=== PATIENT | male | born 1935 | race Caucasian/White ===

== ENCOUNTER → 2016-12-30 | Outpatient (CLI) | payer BC, MEDICARE ==
[2014-09-07 10:57] VITALS: BP 109/70
[~2016-12-30] MED LIST: AMLO5TAB2 PO; ASCO10006 PO; ASPI81TA2 PO; CALC500T PO; CALC600T4 PO; CEFT1VIA IJ; CEPH-264 PO; CHOL10003 PO; DIGO0.12 PO; DIGO0.25 PO; DOXA1TAB PO; FENO145T PO; FENT50VI6 IVP; FLAX100017 PO; FOLI1TAB16 PO; FURO20TA3 PO; FURO40SO5 IVP; LEVO750P7 IV; LORA10TA3 PO; METF500T4 PO; METO100T11 PO; METO200T3 PO; NIAC1000 PO; OMEG500C PO; POTA20TA4 PO; POTA20TA82 PO; SILO8CAP PO; VALS320T2 PO; VITA150T PO; WARF1TAB7 PO; WARF2TAB7 PO; [UNRECOGNIZED DRUG - CODE] PO
== END | disposition home or self-care (01) ==
LOC: PMGWOUND 08:49
PROVIDERS: ATTEND Emergency Medicine Undersea and Hyperbaric Medicine
DX: I87.313 Chronic venous hypertension (idiopathic) with ulcer of bilateral lower extremity (principal); L97.211 Non-pressure chronic ulcer of right calf limited to breakdown of skin; L97.221 Non-pressure chronic ulcer of left calf limited to breakdown of skin; L97.511 Non-pressure chronic ulcer of other part of right foot limited to breakdown of skin; I48.91 Unspecified atrial fibrillation; I11.0 Hypertensive heart disease with heart failure; I50.9 Heart failure, unspecified; M19.90 Unspecified osteoarthritis, unspecified site
CPT/HCPCS: 29581

== ENCOUNTER → 2017-01-02 | Outpatient (CLI) | payer BC, MEDICARE ==
[2014-09-07 10:57] VITALS: BP 109/70
== END | disposition home or self-care (01) ==
LOC: PMGWOUND 12:13
PROVIDERS: ATTEND Preventive Medicine Undersea and Hyperbaric Medicine
DX: I87.313 Chronic venous hypertension (idiopathic) with ulcer of bilateral lower extremity (principal); E11.622 Type 2 diabetes mellitus with other skin ulcer; L97.211 Non-pressure chronic ulcer of right calf limited to breakdown of skin; L97.221 Non-pressure chronic ulcer of left calf limited to breakdown of skin; I48.91 Unspecified atrial fibrillation; I11.0 Hypertensive heart disease with heart failure; I50.9 Heart failure, unspecified; M19.90 Unspecified osteoarthritis, unspecified site
CPT/HCPCS: 29581

== ENCOUNTER → 2017-01-09 | Outpatient (CLI) | payer BC, MEDICARE ==
[2014-09-07 10:57] VITALS: BP 109/70
== END | disposition home or self-care (01) ==
LOC: PMGWOUND 11:21
PROVIDERS: ATTEND Preventive Medicine Undersea and Hyperbaric Medicine
DX: I87.313 Chronic venous hypertension (idiopathic) with ulcer of bilateral lower extremity (principal); L97.211 Non-pressure chronic ulcer of right calf limited to breakdown of skin; L97.221 Non-pressure chronic ulcer of left calf limited to breakdown of skin; I48.91 Unspecified atrial fibrillation; I11.0 Hypertensive heart disease with heart failure; I50.9 Heart failure, unspecified; M19.90 Unspecified osteoarthritis, unspecified site
CPT/HCPCS: 29581

== ENCOUNTER → 2017-01-16 | Outpatient (CLI) | payer BC, MEDICARE ==
[2014-09-07 10:57] VITALS: BP 109/70
== END | disposition home or self-care (01) ==
LOC: PMGWOUND 10:46
PROVIDERS: ATTEND Preventive Medicine Undersea and Hyperbaric Medicine
DX: I87.313 Chronic venous hypertension (idiopathic) with ulcer of bilateral lower extremity (principal); L97.211 Non-pressure chronic ulcer of right calf limited to breakdown of skin; L97.221 Non-pressure chronic ulcer of left calf limited to breakdown of skin; I11.0 Hypertensive heart disease with heart failure; I50.9 Heart failure, unspecified; I48.91 Unspecified atrial fibrillation; M19.90 Unspecified osteoarthritis, unspecified site
CPT/HCPCS: 29581

== ENCOUNTER → 2017-01-23 | Outpatient (CLI) | payer BC, MEDICARE ==
[2014-09-07 10:57] VITALS: BP 109/70
[~2017-01-23] MED LIST changes: +ASCO100020 PO; -ASCO10006 PO; +ASPI-630 PO; -ASPI81TA2 PO
== END | disposition home or self-care (01) ==
LOC: PMGWOUND 10:37
PROVIDERS: ATTEND Preventive Medicine Undersea and Hyperbaric Medicine
DX: I87.311 Chronic venous hypertension (idiopathic) with ulcer of right lower extremity (principal); E11.622 Type 2 diabetes mellitus with other skin ulcer; L97.211 Non-pressure chronic ulcer of right calf limited to breakdown of skin; S41.112D Laceration without foreign body of left upper arm, subsequent encounter; I11.0 Hypertensive heart disease with heart failure; I50.9 Heart failure, unspecified; I48.91 Unspecified atrial fibrillation; M19.90 Unspecified osteoarthritis, unspecified site; X58.XXXD Exposure to other specified factors, subsequent encounter
CPT/HCPCS: 29581; 97597; 97598

== ENCOUNTER → 2017-01-30 | Outpatient (CLI) | payer BC, MEDICARE ==
[2014-09-07 10:57] VITALS: BP 109/70
== END | disposition home or self-care (01) ==
LOC: PMGWOUND 11:08
PROVIDERS: ATTEND Preventive Medicine Undersea and Hyperbaric Medicine
DX: I87.313 Chronic venous hypertension (idiopathic) with ulcer of bilateral lower extremity (principal); L97.211 Non-pressure chronic ulcer of right calf limited to breakdown of skin; L97.221 Non-pressure chronic ulcer of left calf limited to breakdown of skin; I11.0 Hypertensive heart disease with heart failure; I50.9 Heart failure, unspecified; I48.91 Unspecified atrial fibrillation; M19.90 Unspecified osteoarthritis, unspecified site
CPT/HCPCS: 29581

== ENCOUNTER → 2017-02-06 | Outpatient (CLI) | payer BC, MEDICARE ==
[2014-09-07 10:57] VITALS: BP 109/70
== END | disposition home or self-care (01) ==
LOC: PMGWOUND 08:58
PROVIDERS: ATTEND Preventive Medicine Undersea and Hyperbaric Medicine
DX: I87.311 Chronic venous hypertension (idiopathic) with ulcer of right lower extremity (principal); L97.211 Non-pressure chronic ulcer of right calf limited to breakdown of skin; I11.0 Hypertensive heart disease with heart failure; I50.9 Heart failure, unspecified; I48.91 Unspecified atrial fibrillation; M19.90 Unspecified osteoarthritis, unspecified site
CPT/HCPCS: 29581

== ENCOUNTER → 2017-02-13 | Outpatient (CLI) | payer BC, MEDICARE ==
[2014-09-07 10:57] VITALS: BP 109/70
== END | disposition home or self-care (01) ==
LOC: PMGWOUND 10:42
PROVIDERS: ATTEND Preventive Medicine Undersea and Hyperbaric Medicine
DX: I87.313 Chronic venous hypertension (idiopathic) with ulcer of bilateral lower extremity (principal); E11.622 Type 2 diabetes mellitus with other skin ulcer; L97.211 Non-pressure chronic ulcer of right calf limited to breakdown of skin; L97.221 Non-pressure chronic ulcer of left calf limited to breakdown of skin; I11.0 Hypertensive heart disease with heart failure; I50.9 Heart failure, unspecified; I48.91 Unspecified atrial fibrillation; M19.90 Unspecified osteoarthritis, unspecified site; G89.4 Chronic pain syndrome
CPT/HCPCS: 99214

== ENCOUNTER 2017-06-10 12:26 | Inpatient (IN) | payer BC, MEDICARE ==
[~2017-06-10] VITALS: Ht 172.7 cm; Wt 88.5 kg
[~2017-06-10 12:26] MED LIST changes: +METO-247 PO; -METO100T11 PO; -METO200T3 PO; +METO200T5 PO
[2017-06-10 15:00] VITALS: BP 144/81
[2017-06-10] MEDS: IPRATRPIUM/ALBUTEROL 0.5/2.5MG 3 ML NEBU. NEB SCH ×2 (15:21→20:43)
--- NOTE | 2017-06-10 15:37 | PDOC1 ---
History and Physical Date of Admission Date of Admission DATE: 06/10/17 TIME: 15:28 Identification/Chief Complaint Chief Complaint dyspnea, hypoxia Problems: Source Source: Caregiver, Chart review, Patient History of Present Illness History of Present Illness pt was admitted to [facility] 2 days ago, Dr. Rowland was treating acute CHF exacerbation, with CV consult, Pt was getting IV lasix, labs better, pt felt about the same, new hypoxia w. resp failure on this admit 2 days ago CXR showed pleural effusions that appear to be worsening, transfer req. here for CV consult, PULM and poss IR if needed no fever, no pain, no travel, just dyspneic and weakness, also new difficulty voiding urine just this afternoon Past Medical History Cardiovascular: AFIB, CHF, HTN Pulmonary: No pertinent hx GI: No pertinent hx Heme/Onc: No pertinent hx Rheumatologic: No pertinent hx Infectious disease: No pertinent hx Family History Family History: Hypertension Social History Smoke: No ALCOHOL: none Current Medications Current Medications Current Medications Albuterol/ Ipratropium (Duoneb) 3 ml RTQID NEB Last administered on 06/10/17t 15:21; Start 06/10/17 at 16:00 Active Scripts Active Reported Diovan (Valsartan) 320 Mg Tablet 1 Tab PO DAILY Potassium Chloride 20 Meq Tablet.er 20 Meq PO DAILY Niacin Er (Niacin) 1,000 Mg Tab.er.24h 1,000 Mg PO HS Metoprolol Succinate ( Xl ) (Metoprolol Succinate) 100 Mg Tab.er.24h 1 Tab PO DAILY Loratadine 10 Mg Tablet 1 Tab PO DAILY Folic Acid 1 Mg Tablet 1 Tab PO DAILY Cardura (Doxazosin Mesylate) 1 Mg Tablet 1 Mg PO QHS Calcium Carbonate 500 Mg Tablet 500 Mg PO DAILY08 Aspirin 81 Mg Tab.chew 81 Mg PO DAILY Vitamin D3 (Cholecalciferol (Vitamin D3)) 1,000 Unit Tablet 1,000 Unit PO DAILY Super B Complex (Vitamin B Complex & Vit C No.4) 150 Mg Tablet 150 Mg PO DAILY Vitamin C (Ascorbic Acid) 1,000 Mg Tablet.er 1,000 Mg PO DAILY Calcium (Calcium Carbonate) 600 Mg Tablet 600 Mg PO DAILY Flax Seed Oil (Flaxseed Oil) 1,000 Mg Capsule 1,000 Mg PO DAILY Fish Oil ([place]-3 Fatty Acids) 500 Mg Capsule.dr 1,000 Mg PO BID Warfarin Sodium 2 Mg Tablet 2 Mg PO .EVERY OTHER DAY Thursday, , Thursday Warfarin Sodium 1 Mg Tablet 1.5 Mg PO .EVERY OTHER DAY Thursday, Thursday, Thursday, Thursday Niaspan (Niacin) 1,000 Mg Tab.er.24h 1,000 Mg PO DAILY Rapaflo (Silodosin) 8 Mg Capsule 8 Mg PO DAILY Furosemide 20 Mg Tablet 20 Mg PO BID Digoxin 0.25 Mg/5 Ml Solution 0.25 Mg PO .2X A WEEK Digoxin 0.125 Mg/2.5 Ml Solution 0.375 Mg PO 3X/WEEK Tricor (Fenofibrate Nanocrystallized) 145 Mg Tablet 145 Mg PO DAILY Allergies Allergies: Coded Allergies: No Known Drug Allergies (Unverified , 11/03/13) ROS General: YES: Fatigue, Malaise, No: Chills, Night Sweats, Appetite, Other PSYCHOLOGICAL ROS: YES: Sleep disturbances, Other, No: Anxiety, Behavioral Disorder, Concentration difficultie, Decreased libido , Depression, Disorientation, Hallucinations, Hostility, Irritablity, Memory difficulties, Mood Swings, Obsessive thoughts Eyes: No Blurry vision, No Decreased vision, No Double vision, No Dry eyes, No Excessive tearing, No Eye Pain, No Itchy Eyes, No Loss of vision, No Photophobia , No [place]omata, No Uses contacts, No Uses glasses, No Other HEENT: No: Heacaches, Visual Changes, Hearing change, Nasal congestion, Nasal discharge, Oral lesions, Sinus pain, Sore Throat, Epistaxis, Sneezing, Snoring, Tinnitus, Vertigo, Vocal changes, Other ALLERGY AND IMMUNOLOGY: No: Hives, Insect Bite Sensitivity, Itchy/Watery Eyes, Nasal Congestion, Post Nasal Drip, Seasonal Allergies, Other Hematological and Lymphatic: No: Bleeding Problems, Blood Clots, Blood Transfusions, Brusing, Night Sweats, Pallor, Swollen Lymph Nodes, Other Respiratory: YES: Orthopnea, Shortness of breath, SOB with excertion, No: Cough, Hemoptysis, Pleuritic Pain, Sputum Changes, Stridor, Tachypnea, Wheezing, Other Cardiovascular: yes Edema, No Chest Pain, No Palpitations, No Orthopnea, No Paroxysmal Noc. Dyspnea, No Lt Headedness, No Other Gastrointestinal: No Nausea, No Vomiting, No Abdominal Pain, No Diarrhea, No Constipation, No Melena, No Hematochezia, No Other Genitourinary: No Dysuria, No Frequency, No Incontinence, No Hematuria, No Retention, No Discharge, No Urgency, No Pain, No Flank Pain, No Other, No , No , No , No , No , No , No Musculoskeletal: No Gait Disturbance, No Joint Pain, No Joint Stiffness, No Joint Swelling, No Muscle Pain, No Muscular Weakness, No Pain In:, No Swelling In:, No Other Neurological: No Behavorial Changes, No Bowel/Bladder ControlChng, No Confusion , No Dizziness, No Gait Disturbance, No Headaches, No Impaired Coord/balance, No Memory Loss, No Numbness/Tingling, No Seizures, No Speech Problems, No Tremors, No Visual Changes, No Weakness, No Other Skin: Yes Dry Skin, No Eczema, No Hair Changes, No Lumps, No Mole Changes, No Mottling, No Nail Changes, No Pruritus, No Rash, No Skin Lesion Changes, No Other, No Acne Physical Exam General: Alert, Cooperative, No acute distress HEENT: Atraumatic, EOMI, Mucous membr. moist/pink Lungs: Other (dull bases, limited vol, no wheeze, no rales, ) Abdomen: Normal bowel sounds, Soft Rectal Exam: not examined Extremities: No clubbing, Other (2+ LE edema, RLE wounds) Skin: No rashes Neuro: Normal speech, Sensation intact, Other (weakness to stand) Psych/Mental Status: Mood NL Vitals Vitals Vital Signs Date Time Temp Pulse Resp B/P (MAP) Pulse Ox O2 Delivery O2 Flow Rate FiO2 06/10/17 15:23 89 Room Air VTE Prophylaxis Ordered VTE Prophylaxis Devices: Yes VTE Pharmacological Prophylaxi: Yes Assessment/Plan Assessment/Plan 1. Acute hypoxic respiratory failure, CHF exac 2. Acute on chronic diastolic heart failure - recent good diuresis but larger pleural effusions s 3. Afib rate controlled 4. Dyslipidemia - and Hypertension - 5. moderate pulmonary hypertension - 6. moderate protein malnutrition - 7. urinary retention, start flomax JING GREENE MD Jun 10, 2017 15:37
[2017-06-10] MEDS ORDERED: WARFARIN 1 MG TABLET. PO ONE (16:00)
[2017-06-10] MEDS: FUROSEMIDE 40 MG/4 ML VIAL. IVP SCH (17:03)
--- NOTE | 2017-06-10 18:26 | RAD ---
Exam: AP portable chest History: Congestive heart failure. Comparison: None. Findings: Cardiac silhouette is enlarged. No pneumothorax is identified. There is evidence of small bilateral pleural effusions. Bibasilar densities could be atelectasis versus developing infiltrates. Pulmonary vascularity appears accentuated. Impression: 1. Accentuated pulmonary vascularity, suggesting mild congestive heart failure. 2. Small bilateral pleural effusions and associated densities. Electronically signed by: Aung Flores MD (06/10/2017 6:23 PM) [facility]
[2017-06-10 19:15] VITALS: BP 106/55
[2017-06-10 23:25] VITALS: BP 107/65
[2017-06-11 03:25] VITALS: BP 135/73
[2017-06-11 04:51] LABS: BASO % 1 % (0-3); EOS % 1 % (0-3); HEMATOCRIT 36.2 % (39.0-53.0); HEMOGLOBIN 12.3 g/dL (13.0-17.5); LYMPH # 1.2 x10^3/uL (1.0-4.8); LYMPH % 17 % (24-48); MEAN CORPUSCULAR HEMOGLOBIN 33 pg (25-35); MEAN CORPUSCULAR HGB CONC 34 g/dL (31-37); MEAN CORPUSCULAR VOLUME 96 fL (79-100); MONO % 14 % (0-9); NEUT % 67 % (31-73); PLATELET COUNT 150 x10^3/uL (140-400); RED BLOOD COUNT 3.77 x10^6/uL (4.30-5.70); RED CELL DISTRIBUTION WIDTH 14.8 % (11.5-14.5); WHITE BLOOD COUNT 6.8 x10^3/uL (4.0-11.0)
[2017-06-11 05:04] LABS: INR 2.3 (0.8-1.1); PROTHROMBIN TIME PATIENT 23.5 SEC (11.7-14.0)
[2017-06-11 05:27] LABS: ALBUMIN 2.6 g/dL (3.4-5.0); ALBUMIN/GLOBULIN RATIO 0.8 (1.0-1.7); CREATININE 1.1 mg/dL (0.7-1.3); GFR 64.2; POTASSIUM 3.9 mmol/L (3.5-5.1)
[2017-06-11 07:00] VITALS: BP 156/84
[2017-06-11] MEDS: IPRATRPIUM/ALBUTEROL 0.5/2.5MG 3 ML NEBU. NEB SCH ×4 (07:21→20:59)
[2017-06-11] MEDS: FUROSEMIDE 40 MG/4 ML VIAL. IVP SCH ×2 (08:29→16:27)
[2017-06-11] MEDS: METOPROLOL SUCC 24HR ER 100 MG TAB.ER.24H. PO SCH (08:30)
[2017-06-11] MEDS: DIGOXIN 250 MCG TABLET. PO SCH (09:00)
--- NOTE | 2017-06-11 10:57 | PDOC ---
CARDIO Progress Notes Date and Time Date of Service 06/11/17 Time of Evaluation 1015 Subjective Subjective: No Chest Pain, No Palpitations, Other (breathing improved. Having COLEMAN) Vitals Vitals Vital Signs Date Time Temp Pulse Resp B/P (MAP) Pulse Ox O2 Delivery O2 Flow Rate FiO2 06/11/17 09:00 82 156/84 06/11/17 08:00 Nasal Cannula 2.0 06/11/17 07:21 94 06/11/17 07:00 98.0 20 98.0 Weight Weight [ ] Laboratory Labs Laboratory Tests Test 06/11/17 03:15 White Blood Count 6.8 x10^3/uL (4.0-11.0) Red Blood Count 3.77 x10^6/uL (4.30-5.70) Hemoglobin 12.3 g/dL (13.0-17.5) Hematocrit 36.2 % (39.0-53.0) Mean Corpuscular Volume 96 fL (79-100) Mean Corpuscular Hemoglobin 33 pg (25-35) Mean Corpuscular Hemoglobin Concent 34 g/dL (31-37) Red Cell Distribution Width 14.8 % (11.5-14.5) Platelet Count 150 x10^3/uL (140-400) Neutrophils (%) (Auto) 67 % (31-73) Lymphocytes (%) (Auto) 17 % (24-48) Monocytes (%) (Auto) 14 % (0-9) Eosinophils (%) (Auto) 1 % (0-3) Basophils (%) (Auto) 1 % (0-3) Neutrophils # (Auto) 4.6 x10^3uL (1.8-7.7) Lymphocytes # (Auto) 1.2 x10^3/uL (1.0-4.8) Monocytes # (Auto) 0.9 x10^3/uL (0.0-1.1) Eosinophils # (Auto) 0.1 x10^3/uL (0.0-0.7) Basophils # (Auto) 0.0 x10^3/uL (0.0-0.2) Prothrombin Time 23.5 SEC (11.7-14.0) Prothromb Time International Ratio 2.3 (0.8-1.1) Sodium Level 142 mmol/L (136-145) Potassium Level 3.9 mmol/L (3.5-5.1) Chloride Level 101 mmol/L (98-107) Carbon Dioxide Level 41 mmol/L (21-32) Anion Gap 0 (6-14) Blood Urea Nitrogen 29 mg/dL (8-26) Creatinine 1.1 mg/dL (0.7-1.3) Estimated GFR (Cockcroft-Gault) 64.2 BUN/Creatinine Ratio 26 (6-20) Glucose Level 79 mg/dL (70-99) Calcium Level 9.0 mg/dL (8.5-10.1) Total Bilirubin 1.0 mg/dL (0.2-1.0) Aspartate Amino Transf (AST/SGOT) 38 U/L (15-37) Alanine Aminotransferase (ALT/SGPT) 28 U/L (16-63) Alkaline Phosphatase 132 U/L (46-116) ZB-Ufp-N-Type Natriuretic Peptide 6579 pg/mL (0-449) Total Protein 6.0 g/dL (6.4-8.2) Albumin 2.6 g/dL (3.4-5.0) Albumin/Globulin Ratio 0.8 (1.0-1.7) Digoxin Level < 0.2 ng/mL (0.9-2.0) Digoxin Last Dose Date 06/10/17 Digoxin Last Dose Time 0800 Physical Exam HEENT: Neck Supple W Full Motion Chest: Symmetric LUNGS: Other (fine bibasilar crackles) Heart: S1S2, RRR, murmurs (2/6 systolic murmur ) Abdomen: Soft N/T Extremities: Other (2+ bilateral LE edema up to knee level) Neurology: alert, oriented, follow commands Assessment Assessment Continuum of care. See consult from [facility] in physical chart for further details. Assessment 1. Acute diastolic HF; LVEF 60% 2. Acute respiratory failure with bilateral pleural effusion 3. Permanent AFIB 4. Dyslipidemia 5. Hypertension Recommendations Continue IV diuresis. Add potassium. Am labs Rate control with digoxin and metoprolol Warfarin for stroke prophylaxis; hold if thoracentesis is warranted. Supportive care STEVE TRISTAN APRN Jun 11, 2017 10:57
[2017-06-11 11:00] VITALS: BP 139/71
[2017-06-11] MEDS: POTASSIUM CHLORIDE 20 MEQ TABLET.ER. PO SCH ×2 (12:30→20:35)
--- NOTE | 2017-06-11 13:29 | PDOC ---
PROGRESS NOTES Chief Complaint Chief Complaint Dyspnea ASSESSMENT AND PLAN: 1. Acute diastolic HF: LVEF 60%. IV lasix bid 2. Afib: rate controlled on dig and metoprolol 3. OAC: on coumadin 4. Pleural effusions: appreciate Dr Domingo's input. not sufficient fluid for safe pleurocentesis. 5. HTN: restarted home meds. hydralazine PRN 6. HLD: on niacin 7. Protein malnutrition: mild-mod. exacerbated by CHF related hypoalbuminemia 8. BPH: started flomax History of Present Illness History of Present Illness mild SOB, cough, nonproductive. no pain Vitals Vitals Vital Signs Date Time Temp Pulse Resp B/P (MAP) Pulse Ox O2 Delivery O2 Flow Rate FiO2 06/11/17 11:23 100 Nasal Cannula 2.0 06/11/17 11:00 97.4 69 19 139/71 (93) 97.4 Physical Exam General: Alert, Cooperative, No acute distress Heart: Other (almost regular rhythm, rate controlle) Lungs: Crackles (bibasilar) Abdomen: Normal bowel sounds, Soft Extremities: No clubbing, Other (2+ LE edema, RLE wounds) Skin: No rashes Labs LABS Laboratory Tests Test 06/11/17 03:15 White Blood Count 6.8 x10^3/uL (4.0-11.0) Red Blood Count 3.77 x10^6/uL (4.30-5.70) Hemoglobin 12.3 g/dL (13.0-17.5) Hematocrit 36.2 % (39.0-53.0) Mean Corpuscular Volume 96 fL (79-100) Mean Corpuscular Hemoglobin 33 pg (25-35) Mean Corpuscular Hemoglobin Concent 34 g/dL (31-37) Red Cell Distribution Width 14.8 % (11.5-14.5) Platelet Count 150 x10^3/uL (140-400) Neutrophils (%) (Auto) 67 % (31-73) Lymphocytes (%) (Auto) 17 % (24-48) Monocytes (%) (Auto) 14 % (0-9) Eosinophils (%) (Auto) 1 % (0-3) Basophils (%) (Auto) 1 % (0-3) Neutrophils # (Auto) 4.6 x10^3uL (1.8-7.7) Lymphocytes # (Auto) 1.2 x10^3/uL (1.0-4.8) Monocytes # (Auto) 0.9 x10^3/uL (0.0-1.1) Eosinophils # (Auto) 0.1 x10^3/uL (0.0-0.7) Basophils # (Auto) 0.0 x10^3/uL (0.0-0.2) Prothrombin Time 23.5 SEC (11.7-14.0) Prothromb Time International Ratio 2.3 (0.8-1.1) Sodium Level 142 mmol/L (136-145) Potassium Level 3.9 mmol/L (3.5-5.1) Chloride Level 101 mmol/L (98-107) Carbon Dioxide Level 41 mmol/L (21-32) Anion Gap 0 (6-14) Blood Urea Nitrogen 29 mg/dL (8-26) Creatinine 1.1 mg/dL (0.7-1.3) Estimated GFR (Cockcroft-Gault) 64.2 BUN/Creatinine Ratio 26 (6-20) Glucose Level 79 mg/dL (70-99) Calcium Level 9.0 mg/dL (8.5-10.1) Total Bilirubin 1.0 mg/dL (0.2-1.0) Aspartate Amino Transf (AST/SGOT) 38 U/L (15-37) Alanine Aminotransferase (ALT/SGPT) 28 U/L (16-63) Alkaline Phosphatase 132 U/L (46-116) EM-Uqj-A-Type Natriuretic Peptide 6579 pg/mL (0-449) Total Protein 6.0 g/dL (6.4-8.2) Albumin 2.6 g/dL (3.4-5.0) Albumin/Globulin Ratio 0.8 (1.0-1.7) Digoxin Level < 0.2 ng/mL (0.9-2.0) Digoxin Last Dose Date 06/10/17 Digoxin Last Dose Time 0800 YANDEL SAUNDERS MD Jun 11, 2017 13:29
[2017-06-11 15:00] VITALS: BP 134/70
--- NOTE | 2017-06-11 15:22 | PDOC ---
PULMONARY PROGRESS NOTES Vitals Vital Signs Date Time Temp Pulse Resp B/P (MAP) Pulse Ox O2 Delivery O2 Flow Rate FiO2 06/11/17 15:01 100 Nasal Cannula 2.0 06/11/17 11:00 97.4 69 19 139/71 (93) 97.4 Lungs: Crackles (bibasilar) Labs Laboratory Tests Test 06/11/17 03:15 White Blood Count 6.8 x10^3/uL (4.0-11.0) Red Blood Count 3.77 x10^6/uL (4.30-5.70) Hemoglobin 12.3 g/dL (13.0-17.5) Hematocrit 36.2 % (39.0-53.0) Mean Corpuscular Volume 96 fL (79-100) Mean Corpuscular Hemoglobin 33 pg (25-35) Mean Corpuscular Hemoglobin Concent 34 g/dL (31-37) Red Cell Distribution Width 14.8 % (11.5-14.5) Platelet Count 150 x10^3/uL (140-400) Neutrophils (%) (Auto) 67 % (31-73) Lymphocytes (%) (Auto) 17 % (24-48) Monocytes (%) (Auto) 14 % (0-9) Eosinophils (%) (Auto) 1 % (0-3) Basophils (%) (Auto) 1 % (0-3) Neutrophils # (Auto) 4.6 x10^3uL (1.8-7.7) Lymphocytes # (Auto) 1.2 x10^3/uL (1.0-4.8) Monocytes # (Auto) 0.9 x10^3/uL (0.0-1.1) Eosinophils # (Auto) 0.1 x10^3/uL (0.0-0.7) Basophils # (Auto) 0.0 x10^3/uL (0.0-0.2) Prothrombin Time 23.5 SEC (11.7-14.0) Prothromb Time International Ratio 2.3 (0.8-1.1) Sodium Level 142 mmol/L (136-145) Potassium Level 3.9 mmol/L (3.5-5.1) Chloride Level 101 mmol/L (98-107) Carbon Dioxide Level 41 mmol/L (21-32) Anion Gap 0 (6-14) Blood Urea Nitrogen 29 mg/dL (8-26) Creatinine 1.1 mg/dL (0.7-1.3) Estimated GFR (Cockcroft-Gault) 64.2 BUN/Creatinine Ratio 26 (6-20) Glucose Level 79 mg/dL (70-99) Calcium Level 9.0 mg/dL (8.5-10.1) Total Bilirubin 1.0 mg/dL (0.2-1.0) Aspartate Amino Transf (AST/SGOT) 38 U/L (15-37) Alanine Aminotransferase (ALT/SGPT) 28 U/L (16-63) Alkaline Phosphatase 132 U/L (46-116) TS-Oqb-L-Type Natriuretic Peptide 6579 pg/mL (0-449) Total Protein 6.0 g/dL (6.4-8.2) Albumin 2.6 g/dL (3.4-5.0) Albumin/Globulin Ratio 0.8 (1.0-1.7) Digoxin Level < 0.2 ng/mL (0.9-2.0) Digoxin Last Dose Date 06/10/17 Digoxin Last Dose Time 0800 Laboratory Tests Test 06/11/17 03:15 White Blood Count 6.8 x10^3/uL (4.0-11.0) Red Blood Count 3.77 x10^6/uL (4.30-5.70) Hemoglobin 12.3 g/dL (13.0-17.5) Hematocrit 36.2 % (39.0-53.0) Mean Corpuscular Volume 96 fL (79-100) Mean Corpuscular Hemoglobin 33 pg (25-35) Mean Corpuscular Hemoglobin Concent 34 g/dL (31-37) Red Cell Distribution Width 14.8 % (11.5-14.5) Platelet Count 150 x10^3/uL (140-400) Neutrophils (%) (Auto) 67 % (31-73) Lymphocytes (%) (Auto) 17 % (24-48) Monocytes (%) (Auto) 14 % (0-9) Eosinophils (%) (Auto) 1 % (0-3) Basophils (%) (Auto) 1 % (0-3) Neutrophils # (Auto) 4.6 x10^3uL (1.8-7.7) Lymphocytes # (Auto) 1.2 x10^3/uL (1.0-4.8) Monocytes # (Auto) 0.9 x10^3/uL (0.0-1.1) Eosinophils # (Auto) 0.1 x10^3/uL (0.0-0.7) Basophils # (Auto) 0.0 x10^3/uL (0.0-0.2) Prothrombin Time 23.5 SEC (11.7-14.0) Prothromb Time International Ratio 2.3 (0.8-1.1) Sodium Level 142 mmol/L (136-145) Potassium Level 3.9 mmol/L (3.5-5.1) Chloride Level 101 mmol/L (98-107) Carbon Dioxide Level 41 mmol/L (21-32) Anion Gap 0 (6-14) Blood Urea Nitrogen 29 mg/dL (8-26) Creatinine 1.1 mg/dL (0.7-1.3) Estimated GFR (Cockcroft-Gault) 64.2 BUN/Creatinine Ratio 26 (6-20) Glucose Level 79 mg/dL (70-99) Calcium Level 9.0 mg/dL (8.5-10.1) Total Bilirubin 1.0 mg/dL (0.2-1.0) Aspartate Amino Transf (AST/SGOT) 38 U/L (15-37) Alanine Aminotransferase (ALT/SGPT) 28 U/L (16-63) Alkaline Phosphatase 132 U/L (46-116) TR-Gnn-N-Type Natriuretic Peptide 6579 pg/mL (0-449) Total Protein 6.0 g/dL (6.4-8.2) Albumin 2.6 g/dL (3.4-5.0) Albumin/Globulin Ratio 0.8 (1.0-1.7) Digoxin Level < 0.2 ng/mL (0.9-2.0) Digoxin Last Dose Date 06/10/17 Digoxin Last Dose Time 0800 Medications Active Scripts Medications Dose Route/Sig Max Daily Dose Days Date Category Dose Instructions Diovan (Valsartan) 320 Mg Tablet 1 Tab PO DAILY 09/04/14 Reported Potassium Chloride 20 Meq Tablet.er 20 Meq PO DAILY 09/04/14 Reported Niacin Er (Niacin) 1,000 Mg Tab.er.24h 1,000 Mg PO HS 09/04/14 Reported Metoprolol Succinate ( Xl ) (Metoprolol Succinate) 100 Mg Tab.er.24h 1 Tab PO DAILY 09/04/14 Reported Loratadine 10 Mg Tablet 1 Tab PO DAILY 09/04/14 Reported Folic Acid 1 Mg Tablet 1 Tab PO DAILY 09/04/14 Reported Cardura (Doxazosin Mesylate) 1 Mg Tablet 1 Mg PO QHS 09/04/14 Reported Calcium Carbonate 500 Mg Tablet 500 Mg PO DAILY08 09/04/14 Reported Aspirin 81 Mg Tab.chew 81 Mg PO DAILY 11/03/13 Reported Vitamin D3 (Cholecalciferol (Vitamin D3)) 1,000 Unit Tablet 1,000 Unit PO DAILY 11/03/13 Reported Super B Complex (Vitamin B Complex & Vit C No.4) 150 Mg Tablet 150 Mg PO DAILY 11/03/13 Reported Vitamin C (Ascorbic Acid) 1,000 Mg Tablet.er 1,000 Mg PO DAILY 11/03/13 Reported Calcium (Calcium Carbonate) 600 Mg Tablet 600 Mg PO DAILY 11/03/13 Reported Flax Seed Oil (Flaxseed Oil) 1,000 Mg Capsule 1,000 Mg PO DAILY 11/03/13 Reported Fish Oil ([place]-3 Fatty Acids) 500 Mg Capsule.dr 1,000 Mg PO BID 11/03/13 Reported Warfarin Sodium 2 Mg Tablet 2 Mg PO .EVERY OTHER DAY 11/03/13 Reported Thursday, , Thursday Warfarin Sodium 1 Mg Tablet 1.5 Mg PO .EVERY OTHER DAY 11/03/13 Reported Thursday, Thursday, Thursday, Thursday Niaspan (Niacin) 1,000 Mg Tab.er.24h 1,000 Mg PO DAILY 11/03/13 Reported Rapaflo (Silodosin) 8 Mg Capsule 8 Mg PO DAILY 11/03/13 Reported Furosemide 20 Mg Tablet 20 Mg PO BID 11/03/13 Reported Digoxin 0.25 Mg/5 Ml Solution 0.25 Mg PO .2X A WEEK 11/03/13 Reported Digoxin 0.125 Mg/2.5 Ml Solution 0.375 Mg PO 3X/WEEK 11/03/13 Reported Tricor (Fenofibrate Nanocrystallized) 145 Mg Tablet 145 Mg PO DAILY 11/03/13 Reported Impression . DICTATED ACUTE RESP FAILURE ACUTE CHF SMALL EFFUSION NO NEED FOR TAP GARCIA BARRAZA MD Jun 11, 2017 15:22
--- NOTE | 2017-06-11 15:59 | CONS ---
DATE OF CONSULTATION: 06/11/2017 ATTENDING PHYSICIAN: Dr. Tanesha Torres. REASON FOR CONSULTATION: The patient is seen in pulmonary consultation at the request of Dr. Torres for abnormal chest x-ray. HISTORY OF PRESENT ILLNESS: The patient is an 82-year-old that presented with increasing shortness of breath over the last 2 days, pedal edema, some cough mostly nonproductive. No fever or chills. He underwent a chest x-ray. I was asked to see him in consultation as a result of his abnormal x-ray, possibly requiring a thoracentesis. The patient denies fever, chills, night sweats. No history of DVT or pulmonary embolism. He has never smoked. PAST MEDICAL HISTORY: Chronic AFib, CHF, hypertension, obesity, he has lost approximately 60 pounds since his weight loss. He has discontinued his CPAP machine for obstructive sleep apnea. There is no history of DVT or pulmonary embolism. PAST SURGICAL HISTORY: As above, otherwise no recent surgeries. FAMILY HISTORY: Hypertension. SOCIAL HISTORY: He has never smoked. Denies any alcohol intake. CURRENT MEDICATIONS: List was reviewed. ALLERGIES: No known drug allergies. REVIEW OF SYSTEMS: As indicated above, otherwise, a 10-point system was reviewed and negative. PHYSICAL EXAMINATION: GENERAL: The patient was in no respiratory distress. VITAL SIGNS: Stable. O2 saturation currently on 2 liters was greater than 90%. HEENT: Eyes, the sclerae were nonicteric. NECK: Jugular venous distention was not elevated. No lymphadenopathy. CHEST: Full expansion. LUNGS: Crackles in the bases. No wheezes. CARDIOVASCULAR: Regular rate and rhythm with S1, S2; no S3. ABDOMEN: Soft, nontender, nondistended. EXTREMITIES: No clubbing, cyanosis, 1+ edema. NEUROLOGIC: The patient was sitting up in a chair, in no respiratory distress. A detailed neuro exam was not performed. IMAGING: Chest x-ray reviewed as indicated above. LABORATORY DATA: White count was normal. INR was 2.3. Electrolytes were noted. BNP was elevated. Albumin was low. IMPRESSION: 1. Acute respiratory failure secondary to acute diastolic heart failure. 2. Acute diastolic heart failure. 3. Acute cor pulmonale. 4. Obstructive sleep apnea, the patient has lost 60 pounds, no longer utilizing CPAP. 5. Secondary pulmonary hypertension. 6. Permanent atrial fibrillation. 7. Dyslipidemia. 8. Hypertension. 9. Abnormal x-ray revealing bilateral infiltrates and effusion. PLAN: 1. Effusion is not large enough to warrant thoracentesis, recommend continued diuresis. 2. No need for antibiotics. 3. I recommend outpatient polysomnogram despite the fact the patient has lost 60 pounds. His pulmonary artery pressure was elevated at 52. 4. Continue anticoagulation. 5. I do appreciate the privilege in sharing in the patient's care. GARCIA BARRAZA MD DR: RICKY/kamran JOB#: [id number] / [id number]
[2017-06-11] MEDS ORDERED: WARFARIN 2 MG TABLET. PO ONE (16:00)
[2017-06-11 18:55] VITALS: BP 121/62
[2017-06-11 23:00] VITALS: BP 104/62
[2017-06-12 03:02] VITALS: BP 129/65
[2017-06-12 04:55] LABS: CALCIUM 8.9 mg/dL (8.5-10.1); CREATININE 1.1 mg/dL (0.7-1.3); GFR 64.2; MAGNESIUM 1.8 mg/dL (1.8-2.4); POTASSIUM 3.4 mmol/L (3.5-5.1)
[2017-06-12 04:57] LABS: INR 2.2 (0.8-1.1); PROTHROMBIN TIME PATIENT 22.7 SEC (11.7-14.0)
[2017-06-12 07:00] VITALS: BP 179/86
[2017-06-12] MEDS: IPRATRPIUM/ALBUTEROL 0.5/2.5MG 3 ML NEBU. NEB SCH ×4 (08:18→20:12)
[2017-06-12] MEDS: FUROSEMIDE 40 MG/4 ML VIAL. IVP SCH ×2 (08:30→13:51)
[2017-06-12] MEDS: METOPROLOL SUCC 24HR ER 100 MG TAB.ER.24H. PO SCH (08:30)
[2017-06-12] MEDS: DIGOXIN 250 MCG TABLET. PO SCH (08:31)
[2017-06-12] MEDS: POTASSIUM CHLORIDE 20 MEQ TABLET.ER. PO SCH ×2 (08:31→19:25)
--- NOTE | 2017-06-12 10:14 | PDOC ---
PULMONARY PROGRESS NOTES Subjective NO SOA Vitals Vital Signs Date Time Temp Pulse Resp B/P (MAP) Pulse Ox O2 Delivery O2 Flow Rate FiO2 06/12/17 08:31 77 179/86 06/12/17 08:18 98 Nasal Cannula 2.0 06/12/17 07:00 97.9 19 97.9 General: Alert, No acute distress Lungs: Other (decrease bs ) Cardiovascular: S1 Abdomen: Soft Neuro Exam: Alert Extremities: Other (2+edema) Labs Laboratory Tests Test 06/11/17 03:15 06/11/17 20:34 06/12/17 03:45 White Blood Count 6.8 x10^3/uL (4.0-11.0) Red Blood Count 3.77 x10^6/uL (4.30-5.70) Hemoglobin 12.3 g/dL (13.0-17.5) Hematocrit 36.2 % (39.0-53.0) Mean Corpuscular Volume 96 fL (79-100) Mean Corpuscular Hemoglobin 33 pg (25-35) Mean Corpuscular Hemoglobin Concent 34 g/dL (31-37) Red Cell Distribution Width 14.8 % (11.5-14.5) Platelet Count 150 x10^3/uL (140-400) Neutrophils (%) (Auto) 67 % (31-73) Lymphocytes (%) (Auto) 17 % (24-48) Monocytes (%) (Auto) 14 % (0-9) Eosinophils (%) (Auto) 1 % (0-3) Basophils (%) (Auto) 1 % (0-3) Neutrophils # (Auto) 4.6 x10^3uL (1.8-7.7) Lymphocytes # (Auto) 1.2 x10^3/uL (1.0-4.8) Monocytes # (Auto) 0.9 x10^3/uL (0.0-1.1) Eosinophils # (Auto) 0.1 x10^3/uL (0.0-0.7) Basophils # (Auto) 0.0 x10^3/uL (0.0-0.2) Prothrombin Time 23.5 SEC (11.7-14.0) 22.7 SEC (11.7-14.0) Prothromb Time International Ratio 2.3 (0.8-1.1) 2.2 (0.8-1.1) Sodium Level 142 mmol/L (136-145) 141 mmol/L (136-145) Potassium Level 3.9 mmol/L (3.5-5.1) 3.4 mmol/L (3.5-5.1) Chloride Level 101 mmol/L (98-107) 101 mmol/L (98-107) Carbon Dioxide Level 41 mmol/L (21-32) 37 mmol/L (21-32) Anion Gap 0 (6-14) 3 (6-14) Blood Urea Nitrogen 29 mg/dL (8-26) 29 mg/dL (8-26) Creatinine 1.1 mg/dL (0.7-1.3) 1.1 mg/dL (0.7-1.3) Estimated GFR (Cockcroft-Gault) 64.2 64.2 BUN/Creatinine Ratio 26 (6-20) Glucose Level 79 mg/dL (70-99) 96 mg/dL (70-99) Calcium Level 9.0 mg/dL (8.5-10.1) 8.9 mg/dL (8.5-10.1) Total Bilirubin 1.0 mg/dL (0.2-1.0) Aspartate Amino Transf (AST/SGOT) 38 U/L (15-37) Alanine Aminotransferase (ALT/SGPT) 28 U/L (16-63) Alkaline Phosphatase 132 U/L (46-116) DO-Ctt-D-Type Natriuretic Peptide 6579 pg/mL (0-449) Total Protein 6.0 g/dL (6.4-8.2) Albumin 2.6 g/dL (3.4-5.0) Albumin/Globulin Ratio 0.8 (1.0-1.7) Digoxin Level < 0.2 ng/mL (0.9-2.0) Digoxin Last Dose Date 06/10/17 Digoxin Last Dose Time 0800 Glucose (Fingerstick) 103 mg/dL (70-99) Magnesium Level 1.8 mg/dL (1.8-2.4) Laboratory Tests Test 06/11/17 20:34 06/12/17 03:45 Glucose (Fingerstick) 103 mg/dL (70-99) Prothrombin Time 22.7 SEC (11.7-14.0) Prothromb Time International Ratio 2.2 (0.8-1.1) Sodium Level 141 mmol/L (136-145) Potassium Level 3.4 mmol/L (3.5-5.1) Chloride Level 101 mmol/L (98-107) Carbon Dioxide Level 37 mmol/L (21-32) Anion Gap 3 (6-14) Blood Urea Nitrogen 29 mg/dL (8-26) Creatinine 1.1 mg/dL (0.7-1.3) Estimated GFR (Cockcroft-Gault) 64.2 Glucose Level 96 mg/dL (70-99) Calcium Level 8.9 mg/dL (8.5-10.1) Magnesium Level 1.8 mg/dL (1.8-2.4) Medications Active Scripts Medications Dose Route/Sig Max Daily Dose Days Date Category Dose Instructions Diovan (Valsartan) 320 Mg Tablet 1 Tab PO DAILY 09/04/14 Reported Potassium Chloride 20 Meq Tablet.er 20 Meq PO DAILY 09/04/14 Reported Niacin Er (Niacin) 1,000 Mg Tab.er.24h 1,000 Mg PO HS 09/04/14 Reported Metoprolol Succinate ( Xl ) (Metoprolol Succinate) 100 Mg Tab.er.24h 1 Tab PO DAILY 09/04/14 Reported Loratadine 10 Mg Tablet 1 Tab PO DAILY 09/04/14 Reported Folic Acid 1 Mg Tablet 1 Tab PO DAILY 09/04/14 Reported Cardura (Doxazosin Mesylate) 1 Mg Tablet 1 Mg PO QHS 09/04/14 Reported Calcium Carbonate 500 Mg Tablet 500 Mg PO DAILY08 09/04/14 Reported Aspirin 81 Mg Tab.chew 81 Mg PO DAILY 11/03/13 Reported Vitamin D3 (Cholecalciferol (Vitamin D3)) 1,000 Unit Tablet 1,000 Unit PO DAILY 11/03/13 Reported Super B Complex (Vitamin B Complex & Vit C No.4) 150 Mg Tablet 150 Mg PO DAILY 11/03/13 Reported Vitamin C (Ascorbic Acid) 1,000 Mg Tablet.er 1,000 Mg PO DAILY 11/03/13 Reported Calcium (Calcium Carbonate) 600 Mg Tablet 600 Mg PO DAILY 11/03/13 Reported Flax Seed Oil (Flaxseed Oil) 1,000 Mg Capsule 1,000 Mg PO DAILY 11/03/13 Reported Fish Oil ([place]-3 Fatty Acids) 500 Mg Capsule.dr 1,000 Mg PO BID 11/03/13 Reported Warfarin Sodium 2 Mg Tablet 2 Mg PO .EVERY OTHER DAY 11/03/13 Reported Thursday, , Thursday Warfarin Sodium 1 Mg Tablet 1.5 Mg PO .EVERY OTHER DAY 11/03/13 Reported Thursday, Thursday, Thursday, Thursday Niaspan (Niacin) 1,000 Mg Tab.er.24h 1,000 Mg PO DAILY 11/03/13 Reported Rapaflo (Silodosin) 8 Mg Capsule 8 Mg PO DAILY 11/03/13 Reported Furosemide 20 Mg Tablet 20 Mg PO BID 11/03/13 Reported Digoxin 0.25 Mg/5 Ml Solution 0.25 Mg PO .2X A WEEK 11/03/13 Reported Digoxin 0.125 Mg/2.5 Ml Solution 0.375 Mg PO 3X/WEEK 11/03/13 Reported Tricor (Fenofibrate Nanocrystallized) 145 Mg Tablet 145 Mg PO DAILY 11/03/13 Reported Impression . 1. Acute respiratory failure secondary to acute diastolic heart failure. 2. Acute diastolic heart failure. 3. Acute cor pulmonale. 4. Obstructive sleep apnea, the patient has lost 60 pounds, no longer utilizing CPAP. 5. Secondary pulmonary hypertension. 6. Permanent atrial fibrillation. 7. Dyslipidemia. 8. Hypertension. 9. Abnormal x-ray revealing bilateral infiltrates and effusion. Plan . 1. Effusion can be monitored for now with diuresis Possible right heart failure , normal EF 2. No need for antibiotics. 3. I recommend outpatient polysomnogram despite the fact the patient has lost 60 pounds. His pulmonary artery pressure was elevated at 73 4. Continue anticoagulation. 5. If no improvement in CXR, consider thoracentesis DEREJE WOOD MD Jun 12, 2017 10:14
[2017-06-12 11:00] VITALS: BP 125/71
--- NOTE | 2017-06-12 12:43 | PDOC ---
FATOUMATA CHAPIN SHEET IRONWORKER 06/12/17 1243: CARDIO Progress Notes Date and Time Date of Service 06/12/2017 Time of Evaluation 1300 Subjective Subjective: No Chest Pain, No Palpitations, Other (SOA much better) Vitals Vitals Vital Signs Date Time Temp Pulse Resp B/P (MAP) Pulse Ox O2 Delivery O2 Flow Rate FiO2 06/12/17 11:59 98 Nasal Cannula 2.0 06/12/17 11:00 97.5 68 19 125/71 (89) 97.5 Weight Weight [ ] Laboratory Labs Laboratory Tests Test 06/11/17 20:34 06/12/17 03:45 Glucose (Fingerstick) 103 mg/dL (70-99) Prothrombin Time 22.7 SEC (11.7-14.0) Prothromb Time International Ratio 2.2 (0.8-1.1) Sodium Level 141 mmol/L (136-145) Potassium Level 3.4 mmol/L (3.5-5.1) Chloride Level 101 mmol/L (98-107) Carbon Dioxide Level 37 mmol/L (21-32) Anion Gap 3 (6-14) Blood Urea Nitrogen 29 mg/dL (8-26) Creatinine 1.1 mg/dL (0.7-1.3) Estimated GFR (Cockcroft-Gault) 64.2 Glucose Level 96 mg/dL (70-99) Calcium Level 8.9 mg/dL (8.5-10.1) Magnesium Level 1.8 mg/dL (1.8-2.4) Physical Exam HEENT: Neck Supple W Full Motion Chest: Symmetric LUNGS: Other (basilar crackles) Heart: S1S2, murmurs (2/6 systolic murmur ), irregularly irregular (AFIB rate controlled) Abdomen: Soft N/T Extremities: Other (2+ bilateral LE edema up to knee level) Neurology: alert, oriented, follow commands Assessment Assessment 1. Acute diastolic CHF LVEF 60%, mainly right sided. 2. Acute respiratory failure with bilateral pleural effusion; pulmonary following 3. Permanent AFIB: rate controlled 4. Dyslipidemia 5. Hypertension: controlled Recommendations 1. Overall good diurese overnight. Change to daily IV lasix. Routine K replacement 2. Continue with toprol/Dig/Coumadin KUNAL FLORES MD 06/12/17 1018: CARDIO Progress Notes Plan Plan Pt. seen and examined. Agree with above SOUND TECHNICIAN SUPERVISOR note. Has had continued excellent diuresis. Will repeat pa/lat cxr today. Await final pulm recs. Transition to oral diuretics when more stable. FATOUMATA CHAPIN APRN Jun 12, 2017 12:43 KUNAL FLORES MD Jun 12, 2017 16:48
[2017-06-12] MEDS: ACETAMINOPHEN 325 MG TABLET. PO PRN (13:50)
[2017-06-12 15:00] VITALS: BP 95/59
--- NOTE | 2017-06-12 15:16 | PDOC ---
PROGRESS NOTES Chief Complaint Chief Complaint Dyspnea ASSESSMENT AND PLAN: 1. Acute diastolic HF: LVEF 60%. IV lasix bid 2. Hypokalemia: replete orally; monitor K and Mg as well, repelts as indicated. 3. Afib: rate controlled on dig and metoprolol 4. OAC: on coumadin 5. Pleural effusions: not sufficient fluid for safe pleurocentesis per Dr Domingo. 6. HTN: restarted home meds. hydralazine PRN 7. HLD: on niacin 8. Protein malnutrition: mild-mod. exacerbated by CHF related hypoalbuminemia 9. BPH: on flomax History of Present Illness History of Present Illness mild SOB, cough, nonproductive. no pain Vitals Vitals Vital Signs Date Time Temp Pulse Resp B/P (MAP) Pulse Ox O2 Delivery O2 Flow Rate FiO2 06/12/17 11:59 98 Nasal Cannula 2.0 06/12/17 11:00 97.5 68 19 125/71 (89) 97.5 Physical Exam General: Alert, Oriented X3, Cooperative, No acute distress Heart: Other (almost regular rhythm, rate controlled) Lungs: Clear, Other (decrease bs ) Abdomen: Normal bowel sounds, Soft Extremities: No clubbing, Other (2+ LE edema, RLE wounds) Skin: No rashes Labs LABS Laboratory Tests Test 06/11/17 20:34 06/12/17 03:45 Glucose (Fingerstick) 103 mg/dL (70-99) Prothrombin Time 22.7 SEC (11.7-14.0) Prothromb Time International Ratio 2.2 (0.8-1.1) Sodium Level 141 mmol/L (136-145) Potassium Level 3.4 mmol/L (3.5-5.1) Chloride Level 101 mmol/L (98-107) Carbon Dioxide Level 37 mmol/L (21-32) Anion Gap 3 (6-14) Blood Urea Nitrogen 29 mg/dL (8-26) Creatinine 1.1 mg/dL (0.7-1.3) Estimated GFR (Cockcroft-Gault) 64.2 Glucose Level 96 mg/dL (70-99) Calcium Level 8.9 mg/dL (8.5-10.1) Magnesium Level 1.8 mg/dL (1.8-2.4) YANDEL SAUNDERS MD Jun 12, 2017 15:16
[2017-06-12] MEDS ORDERED: POTASSIUM CHLORIDE 20 MEQ TABLET.ER. PO ONE (15:30)
[2017-06-12] MEDS ORDERED: WARFARIN 2 MG TABLET. PO SCH (16:00)
[2017-06-12] MEDS ORDERED: WARFARIN 2 MG TABLET. PO ONE ×2 (16:00→16:45)
[2017-06-12] MEDS ORDERED: METOPROLOL SUCC 24HR ER 100 MG TAB.ER.24H. PO SCH (16:00)
[2017-06-12] MEDS ORDERED: MAGNESIUM SULFATE 2GM 50 ML IV ONE (16:00)
[2017-06-12] MEDS ORDERED: hydrALAZINE 20 MG/ML VIAL. IVP PRN (16:30)
[2017-06-12] MEDS: CHOLECALCIFEROL (VITAMIN D3) 1,000 UNIT TABLET PO SCH (16:33)
[2017-06-12] MEDS: CETIRIZINE HCL 10 MG TABLET. PO SCH (16:33)
[2017-06-12 19:00] VITALS: BP 107/54
[2017-06-12] MEDS ORDERED: DOXAZOSIN MESYLATE 1 MG TABLET. PO SCH (21:00)
[2017-06-12] MEDS ORDERED: NIACIN ER 500 MG TABLET.ER PO SCH (21:00)
[2017-06-12 23:19] VITALS: BP 131/73
[2017-06-13] MEDS: ACETAMINOPHEN 325 MG TABLET. PO PRN (00:49)
[2017-06-13 03:10] VITALS: BP 133/78
[2017-06-13 04:44] LABS: BASO % 1 % (0-3); EOS % 2 % (0-3); HEMATOCRIT 36.5 % (39.0-53.0); HEMOGLOBIN 12.3 g/dL (13.0-17.5); LYMPH % 12 % (24-48); MEAN CORPUSCULAR HEMOGLOBIN 33 pg (25-35); MEAN CORPUSCULAR HGB CONC 34 g/dL (31-37); MEAN CORPUSCULAR VOLUME 97 fL (79-100); MONO % 13 % (0-9); NEUT % 73 % (31-73); PLATELET COUNT 140 x10^3/uL (140-400); RED BLOOD COUNT 3.77 x10^6/uL (4.30-5.70)
[2017-06-13 04:53] LABS: INR 2.2 (0.8-1.1); PROTHROMBIN TIME PATIENT 23.1 SEC (11.7-14.0)
[2017-06-13 05:10] LABS: CALCIUM 8.8 mg/dL (8.5-10.1); CREATININE 0.9 mg/dL (0.7-1.3); POTASSIUM 3.9 mmol/L (3.5-5.1)
[2017-06-13 07:00] VITALS: BP 136/74
[2017-06-13] MEDS: IPRATRPIUM/ALBUTEROL 0.5/2.5MG 3 ML NEBU. NEB SCH ×2 (07:37→11:17)
--- NOTE | 2017-06-13 08:11 | PDOC ---
PULMONARY PROGRESS NOTES Subjective sob is better, no cough, no pain, on home o2 Vitals Vital Signs Date Time Temp Pulse Resp B/P (MAP) Pulse Ox O2 Delivery O2 Flow Rate FiO2 06/13/17 07:39 97 Nasal Cannula 2.0 06/13/17 03:10 98.8 77 20 133/78 (96) 98.8 ROS: No Nausea, No Chest Pain General: Alert, No acute distress Lungs: Clear, Other (decrease bs ) Cardiovascular: S1 Abdomen: Soft, Non-tender Neuro Exam: Alert Extremities: Other (2+edema) Skin: Warm Labs Laboratory Tests Test 06/11/17 20:34 06/12/17 03:45 06/12/17 20:43 06/13/17 03:00 Glucose (Fingerstick) 103 mg/dL (70-99) 127 mg/dL (70-99) Prothrombin Time 22.7 SEC (11.7-14.0) 23.1 SEC (11.7-14.0) Prothromb Time International Ratio 2.2 (0.8-1.1) 2.2 (0.8-1.1) Sodium Level 141 mmol/L (136-145) Potassium Level 3.4 mmol/L (3.5-5.1) Chloride Level 101 mmol/L (98-107) Carbon Dioxide Level 37 mmol/L (21-32) Anion Gap 3 (6-14) Blood Urea Nitrogen 29 mg/dL (8-26) Creatinine 1.1 mg/dL (0.7-1.3) Estimated GFR (Cockcroft-Gault) 64.2 Glucose Level 96 mg/dL (70-99) Calcium Level 8.9 mg/dL (8.5-10.1) Magnesium Level 1.8 mg/dL (1.8-2.4) White Blood Count 8.0 x10^3/uL (4.0-11.0) Red Blood Count 3.77 x10^6/uL (4.30-5.70) Hemoglobin 12.3 g/dL (13.0-17.5) Hematocrit 36.5 % (39.0-53.0) Mean Corpuscular Volume 97 fL (79-100) Mean Corpuscular Hemoglobin 33 pg (25-35) Mean Corpuscular Hemoglobin Concent 34 g/dL (31-37) Red Cell Distribution Width 15.0 % (11.5-14.5) Platelet Count 140 x10^3/uL (140-400) Neutrophils (%) (Auto) 73 % (31-73) Lymphocytes (%) (Auto) 12 % (24-48) Monocytes (%) (Auto) 13 % (0-9) Eosinophils (%) (Auto) 2 % (0-3) Basophils (%) (Auto) 1 % (0-3) Neutrophils # (Auto) 5.8 x10^3uL (1.8-7.7) Lymphocytes # (Auto) 1.0 x10^3/uL (1.0-4.8) Monocytes # (Auto) 1.0 x10^3/uL (0.0-1.1) Eosinophils # (Auto) 0.1 x10^3/uL (0.0-0.7) Basophils # (Auto) 0.0 x10^3/uL (0.0-0.2) Test 06/13/17 03:15 Sodium Level 140 mmol/L (136-145) Potassium Level 3.9 mmol/L (3.5-5.1) Chloride Level 100 mmol/L (98-107) Carbon Dioxide Level 38 mmol/L (21-32) Anion Gap 2 (6-14) Blood Urea Nitrogen 26 mg/dL (8-26) Creatinine 0.9 mg/dL (0.7-1.3) Estimated GFR (Cockcroft-Gault) 81.0 Glucose Level 105 mg/dL (70-99) Calcium Level 8.8 mg/dL (8.5-10.1) Magnesium Level 2.0 mg/dL (1.8-2.4) Laboratory Tests Test 06/12/17 20:43 06/13/17 03:00 06/13/17 03:15 Glucose (Fingerstick) 127 mg/dL (70-99) White Blood Count 8.0 x10^3/uL (4.0-11.0) Red Blood Count 3.77 x10^6/uL (4.30-5.70) Hemoglobin 12.3 g/dL (13.0-17.5) Hematocrit 36.5 % (39.0-53.0) Mean Corpuscular Volume 97 fL (79-100) Mean Corpuscular Hemoglobin 33 pg (25-35) Mean Corpuscular Hemoglobin Concent 34 g/dL (31-37) Red Cell Distribution Width 15.0 % (11.5-14.5) Platelet Count 140 x10^3/uL (140-400) Neutrophils (%) (Auto) 73 % (31-73) Lymphocytes (%) (Auto) 12 % (24-48) Monocytes (%) (Auto) 13 % (0-9) Eosinophils (%) (Auto) 2 % (0-3) Basophils (%) (Auto) 1 % (0-3) Neutrophils # (Auto) 5.8 x10^3uL (1.8-7.7) Lymphocytes # (Auto) 1.0 x10^3/uL (1.0-4.8) Monocytes # (Auto) 1.0 x10^3/uL (0.0-1.1) Eosinophils # (Auto) 0.1 x10^3/uL (0.0-0.7) Basophils # (Auto) 0.0 x10^3/uL (0.0-0.2) Prothrombin Time 23.1 SEC (11.7-14.0) Prothromb Time International Ratio 2.2 (0.8-1.1) Sodium Level 140 mmol/L (136-145) Potassium Level 3.9 mmol/L (3.5-5.1) Chloride Level 100 mmol/L (98-107) Carbon Dioxide Level 38 mmol/L (21-32) Anion Gap 2 (6-14) Blood Urea Nitrogen 26 mg/dL (8-26) Creatinine 0.9 mg/dL (0.7-1.3) Estimated GFR (Cockcroft-Gault) 81.0 Glucose Level 105 mg/dL (70-99) Calcium Level 8.8 mg/dL (8.5-10.1) Magnesium Level 2.0 mg/dL (1.8-2.4) Medications Active Scripts Medications Dose Route/Sig Max Daily Dose Days Date Category Dose Instructions Diovan (Valsartan) 320 Mg Tablet 1 Tab PO DAILY 09/04/14 Reported Potassium Chloride 20 Meq Tablet.er 20 Meq PO DAILY 09/04/14 Reported Niacin Er (Niacin) 1,000 Mg Tab.er.24h 1,000 Mg PO HS 09/04/14 Reported Metoprolol Succinate ( Xl ) (Metoprolol Succinate) 100 Mg Tab.er.24h 1 Tab PO DAILY 09/04/14 Reported Loratadine 10 Mg Tablet 1 Tab PO DAILY 09/04/14 Reported Folic Acid 1 Mg Tablet 1 Tab PO DAILY 09/04/14 Reported Cardura (Doxazosin Mesylate) 1 Mg Tablet 1 Mg PO QHS 09/04/14 Reported Calcium Carbonate 500 Mg Tablet 500 Mg PO DAILY08 09/04/14 Reported Aspirin 81 Mg Tab.chew 81 Mg PO DAILY 11/03/13 Reported Vitamin D3 (Cholecalciferol (Vitamin D3)) 1,000 Unit Tablet 1,000 Unit PO DAILY 11/03/13 Reported Super B Complex (Vitamin B Complex & Vit C No.4) 150 Mg Tablet 150 Mg PO DAILY 11/03/13 Reported Vitamin C (Ascorbic Acid) 1,000 Mg Tablet.er 1,000 Mg PO DAILY 11/03/13 Reported Calcium (Calcium Carbonate) 600 Mg Tablet 600 Mg PO DAILY 11/03/13 Reported Flax Seed Oil (Flaxseed Oil) 1,000 Mg Capsule 1,000 Mg PO DAILY 11/03/13 Reported Fish Oil ([place]-3 Fatty Acids) 500 Mg Capsule.dr 1,000 Mg PO BID 11/03/13 Reported Warfarin Sodium 2 Mg Tablet 2 Mg PO .EVERY OTHER DAY 11/03/13 Reported Thursday, , Thursday Warfarin Sodium 1 Mg Tablet 1.5 Mg PO .EVERY OTHER DAY 11/03/13 Reported Thursday, Thursday, Thursday, Thursday Niaspan (Niacin) 1,000 Mg Tab.er.24h 1,000 Mg PO DAILY 11/03/13 Reported Rapaflo (Silodosin) 8 Mg Capsule 8 Mg PO DAILY 11/03/13 Reported Furosemide 20 Mg Tablet 20 Mg PO BID 11/03/13 Reported Digoxin 0.25 Mg/5 Ml Solution 0.25 Mg PO .2X A WEEK 11/03/13 Reported Digoxin 0.125 Mg/2.5 Ml Solution 0.375 Mg PO 3X/WEEK 11/03/13 Reported Tricor (Fenofibrate Nanocrystallized) 145 Mg Tablet 145 Mg PO DAILY 11/03/13 Reported Impression . 1. Acute respiratory failure secondary to acute diastolic heart failure. 2. Acute diastolic heart failure. 3. Acute cor pulmonale. 4. Obstructive sleep apnea, the patient has lost 60 pounds, no longer utilizing CPAP. 5. Secondary pulmonary hypertension. 6. Permanent atrial fibrillation. 7. Dyslipidemia. 8. Hypertension. 9. Abnormal x-ray revealing bilateral infiltrates and effusion. Plan . 1. Possible right heart failure, normal EF 2. No need for antibiotics. 3. I recommend outpatient polysomnogram despite the fact the patient has lost 60 pounds. His pulmonary artery pressure was elevated at 73 4. Continue anticoagulation. 5. cxr reviewed, has b lat small effusion, keep I<O, cont diuresis, monitor k, cr discussed w pt, rn LUPIS MCDONALD MD Jun 13, 2017 08:11
[2017-06-13] MEDS: POTASSIUM CHLORIDE 20 MEQ TABLET.ER. PO SCH (08:31)
[2017-06-13] MEDS: CETIRIZINE HCL 10 MG TABLET. PO SCH (08:31)
[2017-06-13] MEDS: CHOLECALCIFEROL (VITAMIN D3) 1,000 UNIT TABLET PO SCH (08:31)
[2017-06-13] MEDS: DIGOXIN 250 MCG TABLET. PO SCH (08:32)
[2017-06-13] MEDS: METOPROLOL SUCC 24HR ER 100 MG TAB.ER.24H. PO SCH (08:32)
[2017-06-13] MEDS ORDERED: FENOFIBRATE,MICRONIZED 134 MG CAPSULE PO SCH (09:00)
[2017-06-13] MEDS ORDERED: FUROSEMIDE 40 MG/4 ML VIAL. IVP SCH (09:00)
[2017-06-13] MEDS ORDERED: NON FORMULARY ITEM (Potassium Chloride 20 MEQ) PO SCH (09:00)
[2017-06-13] MEDS ORDERED: SILODOSIN 8 MG PO SCH (09:00)
--- NOTE | 2017-06-13 10:48 | PDOC ---
PROGRESS NOTES Chief Complaint Chief Complaint Dyspnea ASSESSMENT AND PLAN: 1. Acute diastolic HF: LVEF 60%. IV lasix bid decreased to daily. switch to PO 2. Hypokalemia: repleted; monitor K and Mg as well, replete as indicated. 3. Afib: rate controlled on dig and metoprolol 4. OAC: on coumadin 5. Pleural effusions: not sufficient fluid for safe pleurocentesis. Pulm following 6. HTN: restarted home meds. hydralazine PRN 7. HLD: on niacin 8. Protein malnutrition: mild-mod. exacerbated by CHF related hypoalbuminemia. protein supplements 9. BPH: on flomax; voiding trial today 10. LE cellulitis/wounds: improving. wound care. keflex x1 week 11. Dispo: poss return to [facility] today History of Present Illness History of Present Illness breathing at baseline. mild cough upon waking, none since. no other c/o Vitals Vitals Vital Signs Date Time Temp Pulse Resp B/P (MAP) Pulse Ox O2 Delivery O2 Flow Rate FiO2 06/13/17 08:32 92 136/74 06/13/17 07:39 97 Nasal Cannula 2.0 06/13/17 07:00 97.9 20 97.9 Physical Exam General: Alert, Oriented X3, Cooperative, No acute distress Heart: Other (almost regular rhythm, rate controlled) Lungs: Clear Abdomen: Normal bowel sounds, Soft Extremities: No clubbing, Other (2+ LE edema, RLE wounds) Skin: No rashes Labs LABS Laboratory Tests Test 06/12/17 20:43 06/13/17 03:00 06/13/17 03:15 Glucose (Fingerstick) 127 mg/dL (70-99) White Blood Count 8.0 x10^3/uL (4.0-11.0) Red Blood Count 3.77 x10^6/uL (4.30-5.70) Hemoglobin 12.3 g/dL (13.0-17.5) Hematocrit 36.5 % (39.0-53.0) Mean Corpuscular Volume 97 fL (79-100) Mean Corpuscular Hemoglobin 33 pg (25-35) Mean Corpuscular Hemoglobin Concent 34 g/dL (31-37) Red Cell Distribution Width 15.0 % (11.5-14.5) Platelet Count 140 x10^3/uL (140-400) Neutrophils (%) (Auto) 73 % (31-73) Lymphocytes (%) (Auto) 12 % (24-48) Monocytes (%) (Auto) 13 % (0-9) Eosinophils (%) (Auto) 2 % (0-3) Basophils (%) (Auto) 1 % (0-3) Neutrophils # (Auto) 5.8 x10^3uL (1.8-7.7) Lymphocytes # (Auto) 1.0 x10^3/uL (1.0-4.8) Monocytes # (Auto) 1.0 x10^3/uL (0.0-1.1) Eosinophils # (Auto) 0.1 x10^3/uL (0.0-0.7) Basophils # (Auto) 0.0 x10^3/uL (0.0-0.2) Prothrombin Time 23.1 SEC (11.7-14.0) Prothromb Time International Ratio 2.2 (0.8-1.1) Sodium Level 140 mmol/L (136-145) Potassium Level 3.9 mmol/L (3.5-5.1) Chloride Level 100 mmol/L (98-107) Carbon Dioxide Level 38 mmol/L (21-32) Anion Gap 2 (6-14) Blood Urea Nitrogen 26 mg/dL (8-26) Creatinine 0.9 mg/dL (0.7-1.3) Estimated GFR (Cockcroft-Gault) 81.0 Glucose Level 105 mg/dL (70-99) Calcium Level 8.8 mg/dL (8.5-10.1) Magnesium Level 2.0 mg/dL (1.8-2.4) YANDEL SAUNDERS MD Jun 13, 2017 10:48
--- NOTE | 2017-06-13 10:56 | RAD ---
AP portable chest radiograph 06/12/2017 Clinical History: Pleural effusions. An AP portable erect digital radiograph of the chest was obtained. Comparison study is dated 06/10/2017. The cardiac silhouette is mildly enlarged. Atherosclerotic calcification of the thoracic aorta is seen. The thoracic aorta is mildly tortuous. There are small bilateral pleural effusions. These are unchanged. Increasing congestive changes are seen involving both lungs. No pneumothorax is seen. The osseous structures are unchanged. Impression: Increasing congestive changes are seen involving both lungs.
[2017-06-13 11:00] VITALS: BP 93/50
[2017-06-13] MEDS ORDERED: CEPHALEXIN 250 MG CAPSULE. PO SCH (14:00)
[2017-06-13] MEDS ORDERED: WARFARIN 2 MG TABLET. PO ONE (16:00)
[2017-06-13] MEDS ORDERED: WARFARIN 1 MG TABLET. PO SCH (16:00)
[2017-06-13] MEDS ORDERED: POTASSIUM CHLORIDE 20 MEQ TABLET.ER. PO SCH (17:00)
[2017-06-13] MEDS ORDERED: LACTOBACILLUS RHAMNOSUS GG 1 CAPSULE. PO SCH (21:00)
[2017-06-14] MEDS ORDERED: FUROSEMIDE 20 MG TABLET PO SCH (09:00)
== END 2017-06-13 14:30 | DRG 189 ==
LOC: 2 NORTH 13:48
PROVIDERS: ADMIT Internal Medicine; ATTEND Internal Medicine
DX: J96.01 Acute respiratory failure with hypoxia (principal); I26.09 Other pulmonary embolism with acute cor pulmonale; I50.33 Acute on chronic diastolic (congestive) heart failure; E44.0 Moderate protein-calorie malnutrition; I27.29 Other secondary pulmonary hypertension; I48.2 Chronic atrial fibrillation; E78.5 Hyperlipidemia, unspecified; E87.6 Hypokalemia; G47.33 Obstructive sleep apnea (adult) (pediatric); L03.119 Cellulitis of unspecified part of limb; I11.0 Hypertensive heart disease with heart failure; N40.1 Benign prostatic hyperplasia with lower urinary tract symptoms; R33.8 Other retention of urine; Z82.49 Family history of ischemic heart disease and other diseases of the circulatory system; Z68.29 Body mass index [BMI] 29.0-29.9, adult
CPT/HCPCS: 36415; 71010; 80048; 80053; 80162; 82962; 83735; 83880; 85025; 85610; 94250; 94640; 94760; J1940; J7060; J7620; 97110; 97530; 97535